=== PATIENT | male | born 1940 | race Caucasian/White ===

== ENCOUNTER 2018-03-18 09:40 | Day surgery (SDC) | payer MEDICARE, OTHER ==
[~2018-03-18] VITALS: Ht 162.6 cm; Wt 76.6 kg
[~2018-03-18 09:40] MED LIST: ASPI81EC PO; ATOR20 PO; ATOR40TA PO; Aspir-Low81 MG PO; CEPH500 PO; CHOL10002 PO; CYAN1000 PO; FISH1000 PO; Glucophage1000 MG PO; HYDROCOD PO; LISI10 PO; LISI5 PO; METF500C PO; MULVITA PO; MULVITMIND PO; Prinivil10 MG PO; TRIHYD253B PO; TYL PO; UBID100 PO
--- NOTE | 2018-03-18 10:37 | NUR ---
03/18/18 1037 Apoorva Salguero PT HYPERTENSIVE, SEE VITALS SIGNS RECORD. RECEIVED VO FROM DR ZELAYA FOR 10MG IV HYDRALAZINE FOR SYSTOLIC BP MORE THAN 175. 1031 10MG IV HYRDALAZINE GIVEN FOR 211/100 BP.
== END 2018-03-18 12:43 | disposition home or self-care (01) ==
LOC: ORSCSDS 09:40
PROVIDERS: Otolaryngology
PROC: 03BS0ZX Excision of Right Temporal Artery, Open Approach, Diagnostic (ICD-10-PCS; principal; 2018-03-18 11:00)
DX: M31.6 Other giant cell arteritis (principal); E78.5 Hyperlipidemia, unspecified; I10 Essential (primary) hypertension; E11.9 Type 2 diabetes mellitus without complications; Z87.891 Personal history of nicotine dependence; Z79.899 Other long term (current) drug therapy; Z79.82 Long term (current) use of aspirin
CPT/HCPCS: 82947; 88305; 88313; J0360; J1100; J2250; J3010; J7120

== ENCOUNTER → 2018-06-02 | Outpatient (CLI) | payer MEDICARE, OTHER ==
[2018-06-03 15:34] LABS: Adenovirus F 40/41 Not Detected (NOT DETECT); Astrovirus Not Detected (NOT DETECT); Campylobacter Sp Not Detected (NOT DETECT); Cryptosporidium Not Detected (NOT DETECT); Cyclospora Cayetanensis Not Detected (NOT DETECT); E. Coli O157 Not Detected (NOT DETECT); Entamoeba Histolytica Not Detected (NOT DETECT); Enteroaggregative E. coli-EAEC Not Detected (NOT DETECT); Enteropathogenic E. coli-EPEC Not Detected (NOT DETECT); Enterotoxigenic E. coli-ETEC Not Detected (NOT DETECT); Giardia Lamblia Not Detected (NOT DETECT); Norovirus GI/GII Not Detected (NOT DETECT); Plesiomonas Shigelloides Not Detected (NOT DETECT); Rotavirus A Not Detected (NOT DETECT); Salmonella Sp Not Detected (NOT DETECT); Sapovirus Not Detected (NOT DETECT); Shiga Toxin-prod E. coli-STEC Not Detected (NOT DETECT); Shigella/Enteroin E. coli-EIEC Not Detected (NOT DETECT); Vibrio Cholerae Not Detected (NOT DETECT); Vibrio Sp Not Detected (NOT DETECT); Yersinia Enterocolitica Not Detected (NOT DETECT)
== END | disposition home or self-care (01) ==
LOC: LAB 04:00 → LAB SHORT 04:00 → LAB FUT 06-02 12:05
DX: R19.7 Diarrhea, unspecified (principal)
CPT/HCPCS: 87507

== ENCOUNTER 2018-12-23 05:56 | Day surgery (SDC) | payer MEDICARE, OTHER ==
[~2018-12-23] VITALS: Ht 162.6 cm; Wt 78.0 kg
[~2018-12-23 05:56] MED LIST changes: +AMLO10 PO; +BASAGLAR K100 UNIT/1; +Humalog Mi100 UNIT/4; +METPRE4 PO; +OCUVITE ADULT1 EAC1 PO; +PANT40 PO; +SODBIC650 PO; +TUMS500 MG PO; +VITAMIN D31000 UNI2 PO
--- NOTE | 2018-12-23 09:41 | NUR ---
PT AND FAMILY VERBALIZES UNDERSTANDING WRITTEN AND VERBAL ORDERS. PT IV DC'D. CATH INTACT. PRESSURE DSG IN PLACE. R SIDED INCISION REMAINS CLEAR. VSS. NADN. PT WILL DC TO HOME VIA WC
[2018-12-24 06:08] LABS: HBSAG SCREEN Negative (Negative); HEP A AB, IGM Negative (Negative); HEP B CORE AB, IGM Negative (Negative); HEP C VIRUS AB <0.1 (0.0-0.9)
== END 2018-12-23 10:01 | disposition home or self-care (01) ==
LOC: MHTC 05:56
PROVIDERS: Internal Medicine Nephrology
DX: E11.22 Type 2 diabetes mellitus with diabetic chronic kidney disease (principal); N18.6 End stage renal disease; N17.9 Acute kidney failure, unspecified; Z87.891 Personal history of nicotine dependence; Z79.899 Other long term (current) drug therapy; Z79.82 Long term (current) use of aspirin; Z79.4 Long term (current) use of insulin; Z85.53 Personal history of malignant neoplasm of renal pelvis; Z90.5 Acquired absence of kidney
CPT/HCPCS: 36558; 76937; 80074; 99152; 99153; C1750; C1769; J1644; J2250; J3010; J7030; J7040

== ENCOUNTER 2019-01-25 01:01 | Inpatient (IN) | payer MEDICARE, OTHER ==
[~2019-01-25] VITALS: Ht 162.6 cm; Wt 72.4 kg
[~2019-01-25 01:01] MED LIST changes: -BASAGLAR K100 UNIT/1; +BASAGLAR K100 UNIT/1 SC
[2019-01-25 01:15] LABS: Calcium, Ionized (POC) 1.13 mmol/L (1.10-1.46); Chloride (POC) 105 mmol/L (98-108); Creatinine (POC) 3.1 mg/dL (0.8-1.3); Glucose (ISTAT POC) 305 mg/dL (70-99); Hemoglobin (POC) 11.9 g/dL (13.5-17.5); Sodium (POC) 137 mmol/L (135-148); Total CO2 (POC) 20 mmol/L (21-32)
[2019-01-25 01:16] LABS: Hematocrit 35.8 % (37.0-53.0); Hemoglobin 11.7 g/dL (13.5-17.5); Mean Corpuscular HGB 33.1 pg (26.0-34.0); Mean Corpuscular HGB Conc 32.7 g/dL (31.5-36.5); Mean Corpuscular Volume 101 fL (80-100); Mean Platelet Volume 9.6 fL (9.1-12.4); Platelet Count 181 K/mm3 (150-400); RDW Coefficient Variation 12.9 % (11.7-14.2); RDW Standard Deviation 46.9 fL (35.1-46.3); Red Blood Cell Count 3.53 M/mm3 (4.30-5.90); White Blood Cell Count 9.09 K/mm3 (4.00-11.30)
[2019-01-25 01:19] LABS: Source, Urine Clean Catch
[2019-01-25 01:22] LABS: Bilirubin, Urine Neg (Neg); Blood, Urine 1+ (Neg); Glucose Qualitative, Urine 3+ (Neg); Ketones, Urine Neg (Neg); Leukocyte Esterase, Urine Neg (Neg); Nitrite, Urine Neg (Neg); Protein, Urine 3+ (Neg); Specific Gravity, Urine 1.015 (1.003-1.022); Urobilinogen, Urine NORM (Normal)
[2019-01-25 01:23] LABS: Appearance, Urine Clear (Clear); Color, Urine Yellow (P-Yellow)
[2019-01-25 01:29] LABS: Red Blood Cells, Urine Rare /hpf (0-2); Squamous Epithelial Cells Rare /hpf (Few); White Blood Cells, Urine Not Seen /hpf (0-5)
[2019-01-25 01:30] LABS: Bacteria Not Seen /hpf
[2019-01-25 01:36] LABS: Alanine Aminotransfer (ALT/SGP 28 U/L (12-78); Albumin, Blood 3.9 g/dL (3.4-5.0); Albumin/Globulin Ratio 1.2 (0.8-1.8); Alk Phos 99 U/L (50-136); Anion Gap 11 mmol/L (6-16); Aspartate Aminotrans (AST/SGOT 18 U/L (12-37); Bilirubin, Total 0.8 mg/dL (0.1-1.0); Blood Urea Nitrogen 49 mg/dL (8-24); Bun/Creatinine Ratio 17.8 (12.0-20.0); CO2, Blood 21 mmol/L (21-32); Chloride, Blood 107 mmol/L (98-108); Creatinine, Blood 2.75 mg/dL (0.60-1.20); Globulin, Blood 3.3 g/dL (2.2-4.0); Glomerular Filtration Rate 24 (60-); Glucose, Blood 299 mg/dL (70-99); Sodium, Blood 139 mmol/L (136-145); Total Protein, Blood 7.2 g/dL (6.4-8.2); Troponin I <0.015 ng/mL (0.000-0.040)
[2019-01-25 01:39] LABS: BAND PERCENT MAN 13 % (0-8); BASOPHILS PERCENT MAN 0 % (0-2); EOSINOPHILS PERCENT MAN 0 % (0-6); LYMPHOCYTES ABSOLUTE MAN 0.54 K/mm3 (0.84-5.20); LYMPHOCYTES PERCENT MAN 6 % (21-46); MONOCYTES ABSOLUTE MAN 0.36 K/mm3 (0.16-1.47); MONOCYTES PERCENT MAN 4 % (4-13); NEUTROPHILS ABSOLUTE MAN 8.18 K/mm3 (1.96-9.15); SEG NEUTROPHILS PERCENT MAN 77 % (41-73); TOTAL CELLS COUNTED 100
--- NOTE | 2019-01-25 04:36 | NUR ---
DIALYSIS CALLED IN TO DRAW BLOOD CULTURES FROM CATH SITE. DRAWN FROM BLUE PORT (VENOUS) PER PROTOCAL. PACKED WITH HEPARIN 2.1 ML PER PROTOCAL. I WALKED THEM TO THE LAB.
--- NOTE | 2019-01-25 06:34 | NUR ---
ADMIT/ASSESSMENT PT ARRIVED TO ICU VIA GURNEY. HE WAS MOVED OVER TO ICU BED WITH NO ISSUES. VITALS ARE STABLE. ORIENTED PT TO CALL LIGHT. HE SEEMS TO UNDER STAND WHERE HE IS MOST OF THE TIME, BUT NOT SITUATION. HE IS COOPERATIVE WITH CARE. HE CALLED HIS AND LEFT MESSAGE THAT HE NEEDED HER TO BRING IN HIS HOME MEDICATION LIST. THIS RN BEGAN ASKING QUESTIONS FOR HIS HEALTH HISTORY AND HIS ANSWERS ARE NOT CONSISTANT WITH MD'S H AND P. THUS WILL WAIT FOR TO ARRIVE TO HELP WITH HEALTH HISTORY. ADMINISTERED PT'S HEPARIN SQ WELL HIS INSULIN SQ ORDERED. PT TOLERATED THIS WELL AND WAS COOPERATIVE. PT WAS GIVEN A URINAL UPON REQUEST FROM PT. PT IS ON RA WITH NO RESPIRATORY DISTRESS. PT HAS TWO PERIPHERAL IV'S TO LEFT ARM BOTH SL. DIALYSIS PORT TO RIGHT CHEST WALL SL. PT HAS A DIABETIC BLOOD SUGAR CHECK ACCESS DEVICE TO HIS RIGHT DELTOID. OVERALL PT IS PLESANT AND COOPERIVE AND STABLE. WILL CON'T TO MONITOR AND KEEP PT SAFE TILL REPORT TO ONCOMING RN.
--- NOTE | 2019-01-25 08:00 | NUR ---
ASSUMED CARE RECEIVED REPORT FROM NIGHT RN. PT IS ALERT AND ORIENTED TO PLACE, SELF, , BUT NOT SITUATION. HE IS SLOW TO RESPOND AND SLIGHTLY FORGETFUL. STABLE VITALS. BED IS LOW AND LOCKED. CALL LIGHT WITHIN REACH. HE HAS A RIGHT PERMACATH WITH A SITE WNL.
--- NOTE | 2019-01-25 09:09 | NUR ---
PT TO DIALYSIS. PT LEFT ICU, VIA WHEELCHAIR, ON TELEMETRY TO THE DIALYSIS UNIT WITH LORAINE TEAGUE) AND HIS . VITALS WERE STABLE PRIOR TO DEPARTURE; SINUS RHYTHM CONTROLLED RATE.
--- NOTE | 2019-01-25 09:13 | NUR ---
Echocardiogram completed.
--- NOTE | 2019-01-25 11:50 | NUR ---
PT BACK IN ROOM FROM DIALYSIS. AT BEDSIDE.
--- NOTE | 2019-01-25 12:38 | NUR ---
UPDATE/NEURO PT BACK FROM DIALYSIS SHIVERING, WITH STATING THAT HE HAS BEEN COMPLAINING OF BEING VERY COLD. ALTHOUGH HIS SKIN IS WARM TO TOUCH AND HIS TEMPERATURE WAS 99.8F. HE IS TACHYPNEIC, WITH A RATE OF 32, AND HAS DECREASED LOC. HE IS NOW UNABLE TO TELL ME WHERE HE IS, WHO THE PRESIDENT IS, AND CONTINUES TO NOT KNOW WHY HE IS HERE. HE IS NOT ALERT, UNLESS YOU STIMULATE HIM.
--- NOTE | 2019-01-25 14:25 | NUR ---
ANTIBIOTIC CHANGE CEFEPIME STARTED PER ORDER POST BC X 1 RETURNED + COCCI IN [place]. ANTIBIOTIC STARTED AND NOW RADIOLOGY HERE FOR MRI AND REQUESTING ANTIBIOTIC TO BE STOPPED, ASKED IF EXAM COULD WAIT 15 MINUTES BUT TECH REPORTED THE EXAM CANNOT BE COMPLETED TODAY IF IT DOES NOT HAPPEN NOW.
--- NOTE | 2019-01-25 14:31 | NUR ---
PT TO MRI AT THIS TIME.
--- NOTE | 2019-01-25 15:02 | NUR ---
CEFEPIME RESTRARTED PT RETURNED TO ICU AT 1450
[2019-01-25 16:19] LABS: Vancomycin, Random 10.4 ug/mL
--- NOTE | 2019-01-25 19:15 | NUR ---
ASSUME CARE: REPORT RECIEVED FROM [facility] OFF GOING RH, MONITOR INTACT SHOWING SINUS STACIE HEART RATE 50'S RESTS QUIETLY WHEN UNDISTURBED AWAKENS EASILY LUNG SOUND CLEAR. RESPIRATIONS REGULAR AND EASY ON ROOM AIR.SPO2 94-97% WITH O2 IN PLACE AT 2L/MIN.ABDOMEN SOFT WITH BOWEL SOUNDS FOUR QUADS. ATTENDS IN PLACEMAE WELL IN BED CONTINUE TO MONITOR AND REPORT CHANGE IN PATIENT CONDITION
--- NOTE | 2019-01-25 19:29 | NUR ---
SHIFT SUMMARY PT MORE ALERT AT END OF SHIFT, ALTHOUGH HAS TAKEN A DECENT NAP. HE HAS BEEN ORIENTED TO ONLY SELF (AFTER DIALYSIS-SEE NOTE), TO SELF, SPOUSE, SURROUNDINGS, AND SORT OF REGARDING SITUATION. HE WAS RED IN THE FACE AND CHEST, BUT HAS CLEARED UP TO HIS NORMAL SKIN COLOR. HE IS STILL FEBRILE, BUT IT HAS IMPROVED FROM EARLIER. DR. MERCER NOTIFIED ABOUT CONSULTING DR HERNANDEZ DOCTOR TO DOCTOR. AND DR. MERCER WILL NOTIFY SARATH REGARDING BLOOD CULTURE FROM [facility] BEING POSITIVE FOR GRAM POSTIVE COCCI CLUSTERS. HE HAD 4 POSITIVE BLOOD CULTURES COME BACK POSITIVE FOR GRAM POSITIVE COCCI. HE HAD DIALYSIS TODAY WHERE THEY REMOVED 300ML (HE VOIDED SMALL AMOUNTS A FEW TIMES TODAY). VITALS REMAINED STABLE THROUGHOUT SHIFT. PT REQUIRES 2L NC WHEN ASLEEP TO MAINTAIN SATS, HE APPEARS TO HAVE SOME BRIEF APNEIC PERIODS. BED LOW AND LOCKED. CALL LIGHT WITHIN REACH.
--- NOTE | 2019-01-26 00:18 | NUR ---
DR CLEMENS ON PHONE ORDERS NOTED.
--- NOTE | 2019-01-26 00:18 | NUR ---
SWERING SERVICE NOTIFIED OF CONSULT
[2019-01-26 03:25] LABS: BASOPHILS ABSOLUTE AUTO 0.01 K/mm3 (0.00-0.23); BASOPHILS PERCENT AUTO 0 % (0-2); EOSINOPHILS ABSOLUTE AUTO 0.03 K/mm3 (0.00-0.68); EOSINOPHILS PERCENT AUTO 0 % (0-6); Hematocrit 31.5 % (37.0-53.0); Hemoglobin 10.2 g/dL (13.5-17.5); IMMATURE GRAN ABSOLUTE AUTO 0.07 K/mm3 (0.00-0.10); IMMATURE GRAN PERCENT AUTO 1 % (0-1); LYMPHOCYTES ABSOLUTE AUTO 0.49 K/mm3 (0.84-5.20); LYMPHOCYTES PERCENT AUTO 6 % (21-46); MONOCYTES PERCENT AUTO 6 % (4-13); Mean Corpuscular HGB 34.1 pg (26.0-34.0); Mean Corpuscular HGB Conc 32.4 g/dL (31.5-36.5); Mean Platelet Volume 9.7 fL (9.1-12.4); NEUTROPHILS ABSOLUTE AUTO 7.46 K/mm3 (1.96-9.15); NEUTROPHILS PERCENT AUTO 87 % (41-73); Platelet Count 140 K/mm3 (150-400); RDW Standard Deviation 49.5 fL (35.1-46.3); Red Blood Cell Count 2.99 M/mm3 (4.30-5.90); White Blood Cell Count 8.56 K/mm3 (4.00-11.30)
[2019-01-26 03:28] LABS: Mean Corpuscular Volume 105 fL (80-100)
[2019-01-26 03:44] LABS: Albumin, Blood 2.9 g/dL (3.4-5.0); Albumin/Globulin Ratio 0.9 (0.8-1.8); Bilirubin, Total 0.8 mg/dL (0.1-1.0); Bun/Creatinine Ratio 14.6 (12.0-20.0); Calcium, Blood 8.4 mg/dL (8.5-10.1); Creatinine, Blood 2.67 mg/dL (0.60-1.20); Globulin, Blood 3.2 g/dL (2.2-4.0); Magnesium, Blood 1.8 mg/dL (1.6-2.4); Phosphorus, Blood 2.9 mg/dL (2.5-4.9); Potassium, Blood 3.3 mmol/L (3.5-5.5); Total Protein, Blood 6.1 g/dL (6.4-8.2)
--- NOTE | 2019-01-26 06:13 | NUR ---
SHIFAT SUMMARY DR CLEMENS NOTIFIED OF LAB RESULTS POTASSIUM 3.3 ORDERS NOTED. AWAKE DENIES DISCOMFORT MONITOR INTACT SHOWING SINUS RHYTHM/SINUS STACIE. HEART RATE 50'S-60'S LUNG SOUNDS CLEAR UPPER LOBES WITH DECDREASED SOUNDS IN THE BASES. RESPIRATIONS REGULAR AND EASY AT REST WITH O2 IN PLACE AT 2L/MIN. SPO2 95-98% ABDOMEN SOFT WITH BOWEL SOUNDS FOUR QUADS. UP TO BSC WITH ONE ASSIST. VOIDS JUANITA URINE. PERFORMING AM CARES. CONTINUE TO MONITOR AND REPORT CHANGE IN PATIENT CONDITION.
--- NOTE | 2019-01-26 08:00 | NUR ---
INITIAL ASSESSMENT PATIENT RESTING IN BED QUIETLY UPON ENTERING ROOM. PATIENT ALERT AND ORIENTED X 4. PATIENT HAS TEMP OF 100.2 DEGREES FAHRENHEIT. PATIENT DENIES PAIN OR DISCOMFORT. PATIENT SLIGHTLY WEAK, 1 PERSON ASSIST. FULL ROM TO ALL EXTREMITIES. LUNGS CLEAR IN UPPER LOBES, DIMINISHED IN LOWER LOBES. PATIENT SATTING 90% AND GREATER ON RA. PATIENT DENIES COUGH. PATIENT IN SR WITH FIRST DEGREE AV BLOCK. HR 70S TO 80S. BP STABLE. PULSES STRONG. NO EDEMA NOTED. GI WNL. BRUISES NOTED TO BUES, SKIN FRAGILE, OTHERWISE SKIN CLEAN, DRY, INTACT. AT BEDSIDE. BED LOW, CALL LIGHT IN REACH. WILL CONTINUE TO MONITOR PATIENT FREQUENTLY THROUGHOUT SHIFT.
--- NOTE | 2019-01-26 08:26 | NUR ---
CALLED AND SPOKE TO DR. CARVAJAL. INFORMED OF CONSULT AND UPDATED ON PATIENT. INFORMED THAT PATIENT SUPPOSED TO HAVE DIALYSIS AT 0900. STATED THAT HE WILL KEEP PATIENT NPO UNTIL HE SEES HIM, TO SEND PATIENT TO DIALYSIS. NURSE ASKED IF SHOULD HOLD 0900 HEPARIN DOSE; DR. CARVAJAL STATED TO GO AHEAD AND GIVE AM HEPARIN.
--- NOTE | 2019-01-26 08:45 | NUR ---
PATIENT TAKEN TO CT AND THEN TO DIALYSIS FROM CT.
[2019-01-26] MEDS ORDERED: OCUVITE ADULT1 EAC1 PO ×2 (10:20)
--- NOTE | 2019-01-26 11:30 | NUR ---
PATIENT BACK FROM DIALYSIS.
[2019-01-26 11:45] LABS: Vancomycin, Random 7.8 ug/mL
--- NOTE | 2019-01-26 12:13 | NUR ---
DR. CARVAJAL IN ROOM TO SPEAK WITH PATIENT AND .
--- NOTE | 2019-01-26 13:03 | NUR ---
PATIENT RESTING QUIETLY IN BED WITH NO COMPLAINTS AT THIS TIME. PATIENT HAS TEMP OF 102.6 DEGREES FAHRENHEIT. PATIENT GIVEN TYLENOL AND FAN PLACED ON. VITAL SIGNS STABLE OTHERWISE. NO OTHER ACUTE CHANGES TO NOTE ON AT THIS TIME. WILL CONTINUE TO MONITOR.
--- NOTE | 2019-01-26 13:47 | NUR ---
Pt. doing well offered prayers
--- NOTE | 2019-01-26 13:50 | NUR ---
SHIFT SUMMARY PATIENT REMAINED ALERT AND ORIENTED X 4. PATIENT HAD NO COMPLAINTS OF PAIN. PATIENT HAD TMAX OF 102.6 DEGREES FAHRENHEIT AND WAS GIVEN PRN TYLENOL AND FAN PLACED ON. PATIENT REMAINED SATTING 90% AND GREATER ON RA. PATIENT REMAINED IN SR WITH FIRST DEGREE AV BLOCK. HR AND BP REMAINED STABLE. PATIENT DID NOT HAVE BM THIS SHIFT. PATIENT HAS REMAINED NPO UNTIL PERMACATH REMOVED PER DR. CARVAJAL. PATIENT VOIDING DARK YELLOW, FOUL SMELLING URINE INTO BEDSIDE URINAL WITH 1 PERSON ASSIST WITH STANDING. NO CHANGE IN SKIN. PATIENT HAS BEEN REPOSITIONING SELF. NO COMPLAINTS AT THIS TIME. PATIENT IS BEING TAKEN TO REPAIR ARMATURE WINDER FOR PERMACATH REMOVAL AND THEN WILL BE TAKEN DIRECTLY TO PCU 05. UPDATED ON PATIENT CONDITION AND TRANSFER AFTER REPAIR ARMATURE WINDER.
--- NOTE | 2019-01-26 14:00 | NUR ---
[facility], ROHIT ODEN.
--- NOTE | 2019-01-26 15:15 | NUR ---
PT TRANSFERED FROM ICU TO PCU 5. PT ARRIVED ON BED AFTER GOING TO HEART CENTER FOR PERMA CATH REMOVAL. DRESSING TO RIGHT CHEST IS C/D/I. PT IS LETHARGIC, BUT AWAKES EASILY. PT DECLINES ANY PAIN OR DISCOMFORT CURRENTLY.
--- NOTE | 2019-01-26 18:24 | NUR ---
SHIFT SUMMARY PT IS NOW FULLY AWAKE AFTER PERMACATH REMOVAL THIS AFTERNOON. DRESSING TO RIGHT CHEST IS C/D/I. PT ARRIVED TO UNIT AFEBRILE HAS BEEN SINCE. VITALS HAVE REMAINED STABLE POST PROCEDURE.
--- NOTE | 2019-01-26 20:00 | NUR ---
PROVIDER SHIRLEY JOHNSTON BUMPER OPERATOR CALLED REGARDING PT HAVING ACHS BLOOD SUGARS BUT ONLYU AC COVERAGE, CBG SHOWS 221. PROVIDER STATES TO CHANGE ORDER TO AC CHECKS, NO ORDEERS FOR COVERAGE NOW.
[2019-01-27 04:17] LABS: BASOPHILS ABSOLUTE AUTO 0.01 K/mm3 (0.00-0.23); BASOPHILS PERCENT AUTO 0 % (0-2); EOSINOPHILS ABSOLUTE AUTO 0.07 K/mm3 (0.00-0.68); EOSINOPHILS PERCENT AUTO 1 % (0-6); Hematocrit 31.7 % (37.0-53.0); Hemoglobin 10.2 g/dL (13.5-17.5); IMMATURE GRAN ABSOLUTE AUTO 0.04 K/mm3 (0.00-0.10); IMMATURE GRAN PERCENT AUTO 1 % (0-1); LYMPHOCYTES PERCENT AUTO 16 % (21-46); MONOCYTES PERCENT AUTO 10 % (4-13); Mean Corpuscular HGB 33.4 pg (26.0-34.0); Mean Corpuscular HGB Conc 32.2 g/dL (31.5-36.5); Mean Corpuscular Volume 104 fL (80-100); Mean Platelet Volume 9.5 fL (9.1-12.4); NEUTROPHILS ABSOLUTE AUTO 4.93 K/mm3 (1.96-9.15); NEUTROPHILS PERCENT AUTO 72 % (41-73); Platelet Count 147 K/mm3 (150-400); RDW Coefficient Variation 12.7 % (11.7-14.2); Red Blood Cell Count 3.05 M/mm3 (4.30-5.90); White Blood Cell Count 6.85 K/mm3 (4.00-11.30)
[2019-01-27 04:39] LABS: Albumin/Globulin Ratio 0.9 (0.8-1.8); Bilirubin, Total 0.9 mg/dL (0.1-1.0); Bun/Creatinine Ratio 10.7 (12.0-20.0); Calcium, Blood 8.7 mg/dL (8.5-10.1); Creatinine, Blood 2.62 mg/dL (0.60-1.20); Globulin, Blood 3.5 g/dL (2.2-4.0); Magnesium, Blood 1.9 mg/dL (1.6-2.4); Phosphorus, Blood 2.6 mg/dL (2.5-4.9); Potassium, Blood 3.9 mmol/L (3.5-5.5); Total Protein, Blood 6.5 g/dL (6.4-8.2)
--- NOTE | 2019-01-27 05:36 | NUR ---
END OF SHIFT SUMMARY NO ACUTE CHANGES THIS SHIFT. PT AXO, FULLY AWARE OF SURROUNDINGS TO ASSESMENT. PT NOTED TO BE IN WAP VERSUS SR DUE AURA INTERMITTENT INVERSE P WAVES. LUNG SOUNDS DIM BUT CLEAR. PERMA CATH REMOVAL SITE APEARS WITH NO NEW BLEEDING, SOME BRUISING, SLIGHT TENDER TO PALPATION. VSS. PT HAS EXPRESSED NEEDS APPROPRIATELY TO NURSE. USES CALL LIGHT. WILL CONTINUE TO MONITOR UNTIL SHIFT CHANGE.
--- NOTE | 2019-01-27 12:00 | NUR ---
PT TRANSFERRED TO ROOM 341 VIA W/C FROM PCU. SPOKE WITH DR. MERCER ABOUT CONSULT FOR DR. HERNANDEZ. EXPLAINED ONLY OPTION FOR US IS TO LEAVE MESSAGE ON CONSULT LINE BUT WILL KEEP AN EYE OUT FOR MD WHEN HE COMES IN FOR CONSULTS. PT INDEPENDENT IN ROOM WITH AT THE BEDSIDE.
--- NOTE | 2019-01-27 13:13 | NUR ---
Pt. is sitting in a chair and talking with the spouse in the room on a visit ,pt is doing fine offered prayers.
--- NOTE | 2019-01-27 13:15 | NUR ---
Pt. is in bed resting offered prayers and blessing.
[2019-01-27 13:35] LABS: Vancomycin, Random 15.9 ug/mL
--- NOTE | 2019-01-27 18:44 | NUR ---
SHIFT SUMMARY PT HAS BEEN UP IN ROOM INDEPENDENTLY SINCE ARRIVAL WITH AT BEDSIDE. DR. HERNANDEZ IN TO VISIT THIS AFTERNOON AND SPOKE WITH DR. MERCER PRIOR TO VISIT. PT HAS DENIED ANY PAIN AND HAS HAD NO FEVER. AT BEDSIDE SINCE ARRIVAL TO FLOOR.
[2019-01-28 05:01] LABS: BASOPHILS ABSOLUTE AUTO 0.01 K/mm3 (0.00-0.23); BASOPHILS PERCENT AUTO 0 % (0-2); EOSINOPHILS ABSOLUTE AUTO 0.13 K/mm3 (0.00-0.68); EOSINOPHILS PERCENT AUTO 3 % (0-6); Hematocrit 30.8 % (37.0-53.0); IMMATURE GRAN ABSOLUTE AUTO 0.03 K/mm3 (0.00-0.10); IMMATURE GRAN PERCENT AUTO 1 % (0-1); LYMPHOCYTES ABSOLUTE AUTO 1.32 K/mm3 (0.84-5.20); LYMPHOCYTES PERCENT AUTO 26 % (21-46); MONOCYTES ABSOLUTE AUTO 0.76 K/mm3 (0.16-1.47); MONOCYTES PERCENT AUTO 15 % (4-13); Mean Corpuscular HGB 32.8 pg (26.0-34.0); Mean Corpuscular HGB Conc 32.5 g/dL (31.5-36.5); Mean Platelet Volume 9.6 fL (9.1-12.4); NEUTROPHILS ABSOLUTE AUTO 2.89 K/mm3 (1.96-9.15); NEUTROPHILS PERCENT AUTO 56 % (41-73); Platelet Count 169 K/mm3 (150-400); RDW Coefficient Variation 12.6 % (11.7-14.2); RDW Standard Deviation 46.2 fL (35.1-46.3); Red Blood Cell Count 3.05 M/mm3 (4.30-5.90); White Blood Cell Count 5.14 K/mm3 (4.00-11.30)
[2019-01-28 05:04] LABS: Mean Corpuscular Volume 101 fL (80-100)
--- NOTE | 2019-01-28 05:08 | NUR ---
SHIFT SUMMARY NO ACUTE CHANGES THIS SHIFT. PT REPORTS THAT HE FEELS BACK TO HIS BASELINE. OLD HD CATHETER SITE LOOKS CLEAR OF INFECTION. 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 AFEBRILE THIS EVENING. HEADACHE AT START OF SHIFT. MEDICATED W/ TYLENOL 650 MG. PT RESTING IN BED AT THIS TIME. WILL CONTINUE TO MONITOR.
[2019-01-28 05:17] LABS: Anion Gap 5 mmol/L (6-16); Blood Urea Nitrogen 38 mg/dL (8-24); Bun/Creatinine Ratio 13.8 (12.0-20.0); CO2, Blood 28 mmol/L (21-32); Calcium, Blood 8.8 mg/dL (8.5-10.1); Chloride, Blood 104 mmol/L (98-108); Creatinine, Blood 2.76 mg/dL (0.60-1.20); Glomerular Filtration Rate 24 (60-); Glucose, Blood 168 mg/dL (70-99); Magnesium, Blood 2.1 mg/dL (1.6-2.4); Phosphorus, Blood 2.8 mg/dL (2.5-4.9); Sodium, Blood 137 mmol/L (136-145)
--- NOTE | 2019-01-28 15:05 | NUR ---
SHIFT SUMMARY THE PATIENT HAS HAD AN UNEVENTFUL DAY. ASIDE FROM A HEADACHE THIS MORNING, WHICH RESOLVED FROM TYLENOL, THE PATIENT DENIES PAIN AND DISCOMFORT. THE PATIENT CONTINUES ON IV ABX WITHOUT S/SX OF ADVERSE REACTIONS NOTED OR REPORTED. THE PATIENT IS INDEPENDANT WITH HIS ADL's AND AMBULATES THE UNIT FREQUENTLY. THERE ARE NO ACUTE CHANGES TO REPORT OF AT THIS TIME.
--- NOTE | 2019-01-29 03:26 | NUR ---
SUMMARY NO ACUTE CHANGES NOTED THROUGH THE NIGHT. PT REMAINS A&O X4, & INDEPENDENT IN THE ROOM. DRSG TO RIGHT CHEST WALL IS C/D/I. PT IS TOLERATING PO INTAKE. VSS, NO C/O PAIN. PT CALLS FOR ASSISTANCE PRN. CALL LIGHT IN REACH. WCTM
[2019-01-29 04:27] LABS: BASOPHILS ABSOLUTE AUTO 0.01 K/mm3 (0.00-0.23); BASOPHILS PERCENT AUTO 0 % (0-2); EOSINOPHILS PERCENT AUTO 2 % (0-6); Hematocrit 29.7 % (37.0-53.0); Hemoglobin 9.8 g/dL (13.5-17.5); IMMATURE GRAN ABSOLUTE AUTO 0.06 K/mm3 (0.00-0.10); IMMATURE GRAN PERCENT AUTO 1 % (0-1); LYMPHOCYTES ABSOLUTE AUTO 1.43 K/mm3 (0.84-5.20); LYMPHOCYTES PERCENT AUTO 27 % (21-46); MONOCYTES ABSOLUTE AUTO 0.73 K/mm3 (0.16-1.47); MONOCYTES PERCENT AUTO 14 % (4-13); Mean Corpuscular HGB 33.4 pg (26.0-34.0); Mean Corpuscular Volume 101 fL (80-100); Mean Platelet Volume 9.6 fL (9.1-12.4); NEUTROPHILS ABSOLUTE AUTO 2.95 K/mm3 (1.96-9.15); NEUTROPHILS PERCENT AUTO 56 % (41-73); Platelet Count 220 K/mm3 (150-400); RDW Coefficient Variation 12.6 % (11.7-14.2); RDW Standard Deviation 47.3 fL (35.1-46.3); Red Blood Cell Count 2.93 M/mm3 (4.30-5.90); White Blood Cell Count 5.28 K/mm3 (4.00-11.30)
[2019-01-29 04:44] LABS: Albumin, Blood 2.9 g/dL (3.4-5.0); Anion Gap 8 mmol/L (6-16); Blood Urea Nitrogen 42 mg/dL (8-24); Bun/Creatinine Ratio 15.6 (12.0-20.0); CO2, Blood 23 mmol/L (21-32); Calcium, Blood 8.8 mg/dL (8.5-10.1); Chloride, Blood 106 mmol/L (98-108); Creatinine, Blood 2.69 mg/dL (0.60-1.20); Glomerular Filtration Rate 25 (60-); Glucose, Blood 221 mg/dL (70-99); Phosphorus, Blood 2.7 mg/dL (2.5-4.9); Potassium, Blood 4.3 mmol/L (3.5-5.5); Sodium, Blood 137 mmol/L (136-145)
--- NOTE | 2019-01-29 15:06 | NUR ---
SHIFT SUMMARY THE PATIENT HAS HAD ANOTHER UNEVENTFUL DAY. HE JUST RETURNED FROM AN HOUR LONG WALK AROUND THE HOSPITAL PREMESIS AND IS DOING WELL. PATIENT IS INDEPENDANT AND ABLE TO MAKE HIS NEEDS KNOWN. HE CONTINUES ON IV ABX WITH NO S/SX OF ADVERSE REACTIONS NOTED. DENIES PAIN AND DISCOMFORT. NO ACUTE CHANGES TO REPORT ON AT THIS TIME. WILL CONTINUE TO MONITOR AND PROVIDE CARE NEEDED.
[2019-01-30 05:27] LABS: BASOPHILS ABSOLUTE AUTO 0.05 K/mm3 (0.00-0.23); BASOPHILS PERCENT AUTO 1 % (0-2); EOSINOPHILS ABSOLUTE AUTO 0.14 K/mm3 (0.00-0.68); EOSINOPHILS PERCENT AUTO 2 % (0-6); Hematocrit 32.2 % (37.0-53.0); Hemoglobin 9.9 g/dL (13.5-17.5); IMMATURE GRAN ABSOLUTE AUTO 0.28 K/mm3 (0.00-0.10); IMMATURE GRAN PERCENT AUTO 4 % (0-1); LYMPHOCYTES ABSOLUTE AUTO 1.97 K/mm3 (0.84-5.20); LYMPHOCYTES PERCENT AUTO 29 % (21-46); MONOCYTES PERCENT AUTO 13 % (4-13); Mean Corpuscular HGB 32.7 pg (26.0-34.0); Mean Corpuscular HGB Conc 30.7 g/dL (31.5-36.5); Mean Platelet Volume 9.8 fL (9.1-12.4); NEUTROPHILS ABSOLUTE AUTO 3.36 K/mm3 (1.96-9.15); NEUTROPHILS PERCENT AUTO 50 % (41-73); Platelet Count 268 K/mm3 (150-400); RDW Coefficient Variation 12.9 % (11.7-14.2); Red Blood Cell Count 3.03 M/mm3 (4.30-5.90)
[2019-01-30 05:33] LABS: Mean Corpuscular Volume 106 fL (80-100)
[2019-01-30 05:43] LABS: Anion Gap 8 mmol/L (6-16); Blood Urea Nitrogen 42 mg/dL (8-24); Bun/Creatinine Ratio 15.8 (12.0-20.0); CO2, Blood 21 mmol/L (21-32); Calcium, Blood 9.2 mg/dL (8.5-10.1); Chloride, Blood 107 mmol/L (98-108); Creatinine, Blood 2.65 mg/dL (0.60-1.20); Glomerular Filtration Rate 25 (60-); Glucose, Blood 234 mg/dL (70-99); Phosphorus, Blood 2.8 mg/dL (2.5-4.9); Potassium, Blood 4.4 mmol/L (3.5-5.5); Sodium, Blood 136 mmol/L (136-145)
--- NOTE | 2019-01-30 08:05 | NUR ---
SUMMARY PT ALERT AND APPROPRIATE THIS SHIFT. NO C/O.RESTED QUIETLY TONIGHT.
--- NOTE | 2019-01-30 17:53 | NUR ---
SHIFT SUMMARY YESTERDAY BLOOD CULTURES CAME BACK NEGATIVE. TODAYS CULTURES TAKEN & PENDING. NO CHANGES IN ASSESSMENT AT THIS TIME. VSS. PT IND IN ROOM. MEDICATED FOR HEADACHE ONCE THIS SHIFT. NO OTHER COMPLAINTS OF PAIN AT THIS TIME. WILL CONTINUE TO MONITOR UNTIL TURNOVER IS COMPLETE.
[2019-01-31 05:27] LABS: Hematocrit 31.1 % (37.0-53.0); Mean Corpuscular HGB 33.2 pg (26.0-34.0); Mean Corpuscular HGB Conc 32.2 g/dL (31.5-36.5); Mean Platelet Volume 9.6 fL (9.1-12.4); Platelet Count 328 K/mm3 (150-400); RDW Standard Deviation 48.5 fL (35.1-46.3); Red Blood Cell Count 3.01 M/mm3 (4.30-5.90); White Blood Cell Count 6.29 K/mm3 (4.00-11.30)
[2019-01-31 05:29] LABS: Mean Corpuscular Volume 103 fL (80-100)
[2019-01-31 05:52] LABS: Anion Gap 10 mmol/L (6-16); Blood Urea Nitrogen 43 mg/dL (8-24); Bun/Creatinine Ratio 17.6 (12.0-20.0); CO2, Blood 20 mmol/L (21-32); Chloride, Blood 108 mmol/L (98-108); Creatinine, Blood 2.44 mg/dL (0.60-1.20); Glomerular Filtration Rate 27 (60-); Glucose, Blood 286 mg/dL (70-99); Phosphorus, Blood 3.1 mg/dL (2.5-4.9); Potassium, Blood 4.4 mmol/L (3.5-5.5); Sodium, Blood 138 mmol/L (136-145)
[2019-01-31 05:53] LABS: BAND PERCENT MAN 3 % (0-8); BASOPHILS ABSOLUTE MAN 0.06 K/mm3 (0.00-0.23); BASOPHILS PERCENT MAN 1 % (0-2); EOSINOPHILS ABSOLUTE MAN 0.18 K/mm3 (0.00-0.68); EOSINOPHILS PERCENT MAN 3 % (0-6); LYMPHOCYTES % ATYPICAL MANUAL 1 % (0-0); LYMPHOCYTES ABSOLUTE MAN 2.01 K/mm3 (0.84-5.20); LYMPHOCYTES PERCENT MAN 31 % (21-46); METAMYELOCYTE ABSOLUTE MAN 0.18 K/mm3 (0.00-0.00); METAMYELOCYTE PERCENT MAN 3 % (0-0); MONOCYTES ABSOLUTE MAN 0.75 K/mm3 (0.16-1.47); MONOCYTES PERCENT MAN 12 % (4-13); MYELOCYTE ABSOLUTE MAN 0.12 K/mm3 (0.00-0.00); MYELOCYTE PERCENT MAN 2 % (0-0); NEUTROPHILS ABSOLUTE MAN 2.95 K/mm3 (1.96-9.15); SEG NEUTROPHILS PERCENT MAN 44 % (41-73); TOTAL CELLS COUNTED 100
--- NOTE | 2019-01-31 07:36 | NUR ---
SHIFT SUMMARY PT A/O NO C/O PAIN. INDEPENDENT IN ROOM. WALKS AROUND HALLS AND OUTSIDE BUT DENIED SMOKING. HE WAS ABLE TO SLEEP THROUGH THE NIGHT. CALL LIGHT IN REACH.
[2019-01-31] MEDS ORDERED: TYLENOL325 MG PO ×2 (12:00)
[2019-01-31] MEDS ORDERED: Florastor250 MG PO ×2 (12:00)
[2019-01-31] MEDS ORDERED: CEPH500 PO ×2 (12:00)
[2019-01-31] MEDS ORDERED: Rocephin 1g1 G/50 ML IV ×2 (14:12)
--- NOTE | 2019-01-31 18:14 | NUR ---
DISCHARGE PT DISCHARGED TO HOME. THIS RN EXPLAINED DISCHARGE INSTRUCTIONS AND MEDICATIONS TO PT AND HE REPORTS HE UNDERSTANDS. PT RECEIVED FIRST DOSE OF IV ROCEPHIN THIS AFTERNOON IN THE HOSPITAL AND WILL BEGIN OUTPT THERAPY IN [facility] TOMORROW. PT IS AWARE OF TIME. POWERGLIDE IN PLACE, ALCOHOL CAP IN PLACE, AND NETTING COVERING SITE TO PROTECT IT. PT TRANSFERRED TO PRIVATE VEHICLE VIA WHEELCHAIR. PT'S BELONGINGS WITH PT.
== END 2019-01-31 17:11 | disposition home or self-care (01) | DRG 314 ==
LOC: ER 01:01 → EDBEDREQSVC 05:06 → ERHOLD 05:09 → ICUE 05:09 → PCU 01-26 14:52 → MEDS 01-27 11:38 → ENPENDDIS 01-31 11:01 → MEDS 01-31 17:11
PROVIDERS: Emergency Medicine; Internal Medicine; Internal Medicine Nephrology; Pharmacist; ADMIT Family Medicine
DX: T82.7XXA Infection and inflammatory reaction due to other cardiac and vascular devices, implants and grafts, initial encounter (principal); N18.6 End stage renal disease; A41.01 Sepsis due to Methicillin susceptible Staphylococcus aureus; N25.81 Secondary hyperparathyroidism of renal origin; E87.2 Acidosis; L03.115 Cellulitis of right lower limb; I12.0 Hypertensive chronic kidney disease with stage 5 chronic kidney disease or end stage renal disease; Z79.4 Long term (current) use of insulin; E87.5 Hyperkalemia; Z96.642 Presence of left artificial hip joint; E11.65 Type 2 diabetes mellitus with hyperglycemia; D63.1 Anemia in chronic kidney disease; Z99.2 Dependence on renal dialysis; E83.51 Hypocalcemia; Z90.5 Acquired absence of kidney; E11.22 Type 2 diabetes mellitus with diabetic chronic kidney disease; Z86.73 Personal history of transient ischemic attack (TIA), and cerebral infarction without residual deficits
CPT/HCPCS: 36415; 36589; 70450; 70551; 71045; 71046; 80047; 80053; 80069; 80202; 81001; 82947; 83605; 83735; 84100; 84484; 84550; 85014; 85025; 87040; 87070; 87077; 87147; 87186; 93005; 93010; 93308; 93321; 93880; 96365; 97110; 97116; 97162; 97165; 97530; 99152; 99285-25; A9270; A9270-GY; J0690; J0692; J0696; J0881; J1644; J1815; J2250; J3010; J3370; J7040; J7050

== ENCOUNTER 2019-02-01 00:08 | Day surgery (SDC) | payer MEDICARE, OTHER ==
[~2019-02-01 00:08] MED LIST changes: +Florastor250 MG PO; +Rocephin 1g1 G/50 ML IV; +TYLENOL325 MG PO
== END 2019-02-01 09:35 | disposition home or self-care (01) ==
LOC: ATC 00:08
DX: R78.81 Bacteremia (principal); B95.61 Methicillin susceptible Staphylococcus aureus infection as the cause of diseases classified elsewhere; Z79.82 Long term (current) use of aspirin; Z79.4 Long term (current) use of insulin; Z79.899 Other long term (current) drug therapy; Z91.048 Other nonmedicinal substance allergy status
CPT/HCPCS: 96365; J0696

== ENCOUNTER 2019-02-02 00:19 | Day surgery (SDC) | payer MEDICARE, OTHER | END 2019-02-02 10:25 | disposition home or self-care (01) | LOC: ATC 00:19 | DX: R78.81 Bacteremia (principal); B95.61 Methicillin susceptible Staphylococcus aureus infection as the cause of diseases classified elsewhere; Z79.82 Long term (current) use of aspirin; Z79.4 Long term (current) use of insulin; Z79.899 Other long term (current) drug therapy; Z91.048 Other nonmedicinal substance allergy status | CPT/HCPCS: 96365; J0696 ==

== ENCOUNTER 2019-02-03 00:40 | Day surgery (SDC) | payer MEDICARE, OTHER | END 2019-02-03 09:34 | disposition home or self-care (01) | LOC: ATC 00:40 | DX: R78.81 Bacteremia (principal); B95.61 Methicillin susceptible Staphylococcus aureus infection as the cause of diseases classified elsewhere; Z79.1 Long term (current) use of non-steroidal anti-inflammatories (NSAID); Z79.4 Long term (current) use of insulin; Z79.82 Long term (current) use of aspirin; Z79.899 Other long term (current) drug therapy | CPT/HCPCS: 96365; J0696 ==

== ENCOUNTER 2019-02-04 00:22 | Day surgery (SDC) | payer MEDICARE, OTHER | END 2019-02-04 09:30 | disposition home or self-care (01) | LOC: ATC 00:22 | DX: R78.81 Bacteremia (principal); B95.61 Methicillin susceptible Staphylococcus aureus infection as the cause of diseases classified elsewhere; Z79.82 Long term (current) use of aspirin; Z79.4 Long term (current) use of insulin; Z79.899 Other long term (current) drug therapy | CPT/HCPCS: 96365; J0696 ==

== ENCOUNTER 2019-02-07 00:25 | Day surgery (SDC) | payer MEDICARE, OTHER | END 2019-02-07 16:01 | disposition home or self-care (01) | LOC: ATC 00:25 | DX: A49.01 Methicillin susceptible Staphylococcus aureus infection, unspecified site (principal) | CPT/HCPCS: 96365; J0696 ==

== ENCOUNTER 2019-02-09 00:08 | Day surgery (SDC) | payer MEDICARE, OTHER | END 2019-02-09 09:25 | disposition home or self-care (01) | LOC: ATC 00:08 | DX: R78.81 Bacteremia (principal); B95.61 Methicillin susceptible Staphylococcus aureus infection as the cause of diseases classified elsewhere; Z79.82 Long term (current) use of aspirin; Z79.899 Other long term (current) drug therapy; Z79.4 Long term (current) use of insulin; Z91.048 Other nonmedicinal substance allergy status | CPT/HCPCS: J0696 ==

== ENCOUNTER 2019-02-14 07:29 | Day surgery (SDC) | payer MEDICARE, OTHER | END 2019-02-14 09:38 | disposition home or self-care (01) | LOC: ATC 07:29 | DX: R78.81 Bacteremia (principal); B95.61 Methicillin susceptible Staphylococcus aureus infection as the cause of diseases classified elsewhere; L03.115 Cellulitis of right lower limb; I10 Essential (primary) hypertension; E78.5 Hyperlipidemia, unspecified; E11.9 Type 2 diabetes mellitus without complications; Z96.642 Presence of left artificial hip joint; Z87.891 Personal history of nicotine dependence; Z79.82 Long term (current) use of aspirin; Z79.899 Other long term (current) drug therapy | CPT/HCPCS: 96365; J0696 ==

== ENCOUNTER 2019-02-15 00:01 | Day surgery (SDC) | payer MEDICARE, OTHER | END 2019-02-15 09:22 | disposition home or self-care (01) | LOC: ATC 00:01 | DX: R78.81 Bacteremia (principal); B95.61 Methicillin susceptible Staphylococcus aureus infection as the cause of diseases classified elsewhere; I10 Essential (primary) hypertension; E78.5 Hyperlipidemia, unspecified; E11.9 Type 2 diabetes mellitus without complications; L03.115 Cellulitis of right lower limb; D63.8 Anemia in other chronic diseases classified elsewhere; Z91.048 Other nonmedicinal substance allergy status; Z87.891 Personal history of nicotine dependence; Z79.82 Long term (current) use of aspirin; Z79.4 Long term (current) use of insulin; Z79.1 Long term (current) use of non-steroidal anti-inflammatories (NSAID); Z79.899 Other long term (current) drug therapy | CPT/HCPCS: 96365; J0696 ==

== ENCOUNTER 2019-02-16 00:01 | Day surgery (SDC) | payer MEDICARE, OTHER | END 2019-02-16 09:32 | disposition home or self-care (01) | LOC: ATC 00:01 | DX: R78.81 Bacteremia (principal); B95.61 Methicillin susceptible Staphylococcus aureus infection as the cause of diseases classified elsewhere; L03.115 Cellulitis of right lower limb; I10 Essential (primary) hypertension; E78.5 Hyperlipidemia, unspecified; E11.9 Type 2 diabetes mellitus without complications; D63.8 Anemia in other chronic diseases classified elsewhere; Z79.4 Long term (current) use of insulin; Z79.82 Long term (current) use of aspirin; Z79.899 Other long term (current) drug therapy; Z87.891 Personal history of nicotine dependence; Z91.048 Other nonmedicinal substance allergy status | CPT/HCPCS: 96365; J0696 ==

== ENCOUNTER 2019-02-17 00:32 | Day surgery (SDC) | payer MEDICARE, OTHER | END 2019-02-17 23:11 | disposition home or self-care (01) | LOC: ATC 00:32 | DX: R78.81 Bacteremia (principal); B95.61 Methicillin susceptible Staphylococcus aureus infection as the cause of diseases classified elsewhere; E11.628 Type 2 diabetes mellitus with other skin complications; L03.115 Cellulitis of right lower limb; I10 Essential (primary) hypertension; E78.5 Hyperlipidemia, unspecified; D63.8 Anemia in other chronic diseases classified elsewhere; Z86.73 Personal history of transient ischemic attack (TIA), and cerebral infarction without residual deficits; Z79.82 Long term (current) use of aspirin; Z79.4 Long term (current) use of insulin; Z79.899 Other long term (current) drug therapy | CPT/HCPCS: 96365; J0696 ==

== ENCOUNTER 2019-02-18 01:19 | Day surgery (SDC) | payer MEDICARE, OTHER | END 2019-02-18 09:24 | disposition home or self-care (01) | LOC: ATC 01:19 | DX: R78.81 Bacteremia (principal); B95.61 Methicillin susceptible Staphylococcus aureus infection as the cause of diseases classified elsewhere; E11.628 Type 2 diabetes mellitus with other skin complications; L03.115 Cellulitis of right lower limb; I10 Essential (primary) hypertension; E78.5 Hyperlipidemia, unspecified; D63.8 Anemia in other chronic diseases classified elsewhere; Z86.73 Personal history of transient ischemic attack (TIA), and cerebral infarction without residual deficits; Z79.82 Long term (current) use of aspirin; Z79.4 Long term (current) use of insulin; Z79.899 Other long term (current) drug therapy | CPT/HCPCS: 96365; J0696 ==

== ENCOUNTER 2019-02-19 08:39 | Day surgery (SDC) | payer MEDICARE, OTHER | END 2019-02-19 09:16 | disposition home or self-care (01) | LOC: ATC 08:39 | DX: R78.81 Bacteremia (principal); B95.61 Methicillin susceptible Staphylococcus aureus infection as the cause of diseases classified elsewhere; E11.628 Type 2 diabetes mellitus with other skin complications; L03.115 Cellulitis of right lower limb; I10 Essential (primary) hypertension; E78.5 Hyperlipidemia, unspecified; D63.8 Anemia in other chronic diseases classified elsewhere; Z86.73 Personal history of transient ischemic attack (TIA), and cerebral infarction without residual deficits; Z79.82 Long term (current) use of aspirin; Z79.4 Long term (current) use of insulin; Z79.899 Other long term (current) drug therapy | CPT/HCPCS: 96365; J0696 ==

== ENCOUNTER 2019-02-20 08:41 | Day surgery (SDC) | payer MEDICARE, OTHER | END 2019-02-20 09:13 | disposition home or self-care (01) | LOC: ATC 08:41 | DX: R78.81 Bacteremia (principal); B95.61 Methicillin susceptible Staphylococcus aureus infection as the cause of diseases classified elsewhere; E11.628 Type 2 diabetes mellitus with other skin complications; L03.115 Cellulitis of right lower limb; I10 Essential (primary) hypertension; E78.5 Hyperlipidemia, unspecified; D63.8 Anemia in other chronic diseases classified elsewhere; Z79.2 Long term (current) use of antibiotics; Z79.82 Long term (current) use of aspirin; Z79.4 Long term (current) use of insulin; Z79.899 Other long term (current) drug therapy; Z96.642 Presence of left artificial hip joint; Z87.891 Personal history of nicotine dependence; Z86.73 Personal history of transient ischemic attack (TIA), and cerebral infarction without residual deficits; Z91.048 Other nonmedicinal substance allergy status | CPT/HCPCS: 96365; J0696 ==

== ENCOUNTER 2019-02-21 09:25 | Day surgery (SDC) | payer MEDICARE, OTHER | END 2019-02-21 09:50 | disposition home or self-care (01) | LOC: ATC 09:25 | DX: R78.81 Bacteremia (principal); B95.61 Methicillin susceptible Staphylococcus aureus infection as the cause of diseases classified elsewhere; E11.628 Type 2 diabetes mellitus with other skin complications; L03.115 Cellulitis of right lower limb; I10 Essential (primary) hypertension; E78.5 Hyperlipidemia, unspecified; D63.8 Anemia in other chronic diseases classified elsewhere; Z79.2 Long term (current) use of antibiotics; Z79.82 Long term (current) use of aspirin; Z79.4 Long term (current) use of insulin; Z79.899 Other long term (current) drug therapy; Z96.642 Presence of left artificial hip joint; Z87.891 Personal history of nicotine dependence; Z86.73 Personal history of transient ischemic attack (TIA), and cerebral infarction without residual deficits; Z91.048 Other nonmedicinal substance allergy status | CPT/HCPCS: 96365; J0696 ==

== ENCOUNTER 2019-02-22 00:12 | Day surgery (SDC) | payer MEDICARE, OTHER | END 2019-02-22 23:16 | disposition home or self-care (01) | LOC: ATC 00:12 | DX: A49.01 Methicillin susceptible Staphylococcus aureus infection, unspecified site (principal); I10 Essential (primary) hypertension; E11.65 Type 2 diabetes mellitus with hyperglycemia; L03.115 Cellulitis of right lower limb; I69.398 Other sequelae of cerebral infarction; H53.9 Unspecified visual disturbance; E78.5 Hyperlipidemia, unspecified; Z79.4 Long term (current) use of insulin; Z87.891 Personal history of nicotine dependence; Z79.899 Other long term (current) drug therapy; Z79.82 Long term (current) use of aspirin | CPT/HCPCS: 96365; J0696 ==

== ENCOUNTER 2019-02-23 09:00 | Day surgery (SDC) | payer MEDICARE, OTHER | END 2019-02-23 09:12 | disposition home or self-care (01) | LOC: ATC 09:00 | DX: R78.81 Bacteremia (principal); B95.61 Methicillin susceptible Staphylococcus aureus infection as the cause of diseases classified elsewhere; E11.628 Type 2 diabetes mellitus with other skin complications; L03.115 Cellulitis of right lower limb; I10 Essential (primary) hypertension; D63.8 Anemia in other chronic diseases classified elsewhere; E78.5 Hyperlipidemia, unspecified; Z96.642 Presence of left artificial hip joint; Z87.891 Personal history of nicotine dependence; Z86.73 Personal history of transient ischemic attack (TIA), and cerebral infarction without residual deficits; Z79.82 Long term (current) use of aspirin; Z79.2 Long term (current) use of antibiotics; Z79.4 Long term (current) use of insulin; Z79.899 Other long term (current) drug therapy | CPT/HCPCS: 96365; J0696 ==

== ENCOUNTER 2019-02-24 00:19 | Day surgery (SDC) | payer MEDICARE, OTHER ==
--- NOTE | 2019-02-24 10:25 | NUR ---
PT TO F/U WITH DR HERNANDEZ, DR BEAL OR THE ER RE. POSSIBLE GREAT TOE INFECTION.
== END 2019-02-24 09:37 | disposition home or self-care (01) ==
LOC: ATC 00:19
DX: R78.81 Bacteremia (principal); B95.61 Methicillin susceptible Staphylococcus aureus infection as the cause of diseases classified elsewhere; E11.628 Type 2 diabetes mellitus with other skin complications; L03.115 Cellulitis of right lower limb; I10 Essential (primary) hypertension; E78.5 Hyperlipidemia, unspecified; D63.8 Anemia in other chronic diseases classified elsewhere; Z79.2 Long term (current) use of antibiotics; Z79.82 Long term (current) use of aspirin; Z79.4 Long term (current) use of insulin; Z79.899 Other long term (current) drug therapy
CPT/HCPCS: 96365; J0696

== ENCOUNTER 2019-02-25 00:33 | Day surgery (SDC) | payer MEDICARE, OTHER | END 2019-02-25 09:18 | disposition home or self-care (01) | LOC: ATC 00:33 | DX: R78.81 Bacteremia (principal); B95.61 Methicillin susceptible Staphylococcus aureus infection as the cause of diseases classified elsewhere; E11.628 Type 2 diabetes mellitus with other skin complications; L03.115 Cellulitis of right lower limb; I10 Essential (primary) hypertension; E78.5 Hyperlipidemia, unspecified; D63.8 Anemia in other chronic diseases classified elsewhere; Z96.642 Presence of left artificial hip joint; Z87.891 Personal history of nicotine dependence; Z86.73 Personal history of transient ischemic attack (TIA), and cerebral infarction without residual deficits; Z79.2 Long term (current) use of antibiotics; Z79.4 Long term (current) use of insulin; Z79.82 Long term (current) use of aspirin; Z79.899 Other long term (current) drug therapy | CPT/HCPCS: 96365; J0696 ==

== ENCOUNTER 2019-02-26 00:45 | Day surgery (SDC) | payer MEDICARE, OTHER | END 2019-02-26 09:35 | disposition home or self-care (01) | LOC: ATC 00:45 | DX: R78.81 Bacteremia (principal); B95.61 Methicillin susceptible Staphylococcus aureus infection as the cause of diseases classified elsewhere; E11.628 Type 2 diabetes mellitus with other skin complications; L03.115 Cellulitis of right lower limb; I10 Essential (primary) hypertension; E78.5 Hyperlipidemia, unspecified; D63.8 Anemia in other chronic diseases classified elsewhere; Z96.642 Presence of left artificial hip joint; Z87.891 Personal history of nicotine dependence; Z86.73 Personal history of transient ischemic attack (TIA), and cerebral infarction without residual deficits; Z79.2 Long term (current) use of antibiotics; Z79.4 Long term (current) use of insulin; Z79.82 Long term (current) use of aspirin; Z79.899 Other long term (current) drug therapy | CPT/HCPCS: 96365; J0696 ==

== ENCOUNTER 2019-02-27 00:08 | Day surgery (SDC) | payer MEDICARE, OTHER | END 2019-02-27 09:25 | disposition home or self-care (01) | LOC: ATC 00:08 | DX: L03.115 Cellulitis of right lower limb (principal); E78.5 Hyperlipidemia, unspecified; I12.9 Hypertensive chronic kidney disease with stage 1 through stage 4 chronic kidney disease, or unspecified chronic kidney disease; E11.65 Type 2 diabetes mellitus with hyperglycemia; E11.22 Type 2 diabetes mellitus with diabetic chronic kidney disease; N18.9 Chronic kidney disease, unspecified; D63.1 Anemia in chronic kidney disease; I69.398 Other sequelae of cerebral infarction; H53.9 Unspecified visual disturbance; Z79.4 Long term (current) use of insulin; Z87.891 Personal history of nicotine dependence; Z79.82 Long term (current) use of aspirin; Z79.899 Other long term (current) drug therapy; Z99.2 Dependence on renal dialysis | CPT/HCPCS: 96365; J0696 ==

== ENCOUNTER 2019-02-28 00:19 | Day surgery (SDC) | payer MEDICARE, OTHER | END 2019-02-28 09:15 | disposition home or self-care (01) | LOC: ATC 00:19 | DX: R78.81 Bacteremia (principal); B95.61 Methicillin susceptible Staphylococcus aureus infection as the cause of diseases classified elsewhere; E11.628 Type 2 diabetes mellitus with other skin complications; L03.115 Cellulitis of right lower limb; I10 Essential (primary) hypertension; E78.5 Hyperlipidemia, unspecified; D63.8 Anemia in other chronic diseases classified elsewhere; I69.998 Other sequelae following unspecified cerebrovascular disease; Z79.2 Long term (current) use of antibiotics; Z79.82 Long term (current) use of aspirin; Z79.4 Long term (current) use of insulin; Z79.899 Other long term (current) drug therapy; Z87.891 Personal history of nicotine dependence; Z91.048 Other nonmedicinal substance allergy status | CPT/HCPCS: 96365; J0696 ==

== ENCOUNTER 2019-03-01 00:30 | Day surgery (SDC) | payer MEDICARE, OTHER | END 2019-03-01 23:38 | disposition home or self-care (01) | LOC: ATC 00:30 | DX: R78.81 Bacteremia (principal); B95.61 Methicillin susceptible Staphylococcus aureus infection as the cause of diseases classified elsewhere; E11.628 Type 2 diabetes mellitus with other skin complications; L03.115 Cellulitis of right lower limb; I10 Essential (primary) hypertension; I69.998 Other sequelae following unspecified cerebrovascular disease; D63.8 Anemia in other chronic diseases classified elsewhere; E78.5 Hyperlipidemia, unspecified; Z79.2 Long term (current) use of antibiotics; Z79.82 Long term (current) use of aspirin; Z79.4 Long term (current) use of insulin; Z79.899 Other long term (current) drug therapy; Z87.891 Personal history of nicotine dependence; Z91.048 Other nonmedicinal substance allergy status ==

== ENCOUNTER 2019-04-08 12:06 | Emergency (ER) | payer MEDICARE, OTHER ==
[~2019-04-08] VITALS: Ht 162.6 cm; Wt 73.5 kg
[2019-04-08 13:13] LABS: BASOPHILS ABSOLUTE AUTO 0.02 K/mm3 (0.00-0.23); BASOPHILS PERCENT AUTO 0 % (0-2); EOSINOPHILS ABSOLUTE AUTO 0.02 K/mm3 (0.00-0.68); EOSINOPHILS PERCENT AUTO 0 % (0-6); Hemoglobin 12.6 g/dL (13.5-17.5); IMMATURE GRAN ABSOLUTE AUTO 0.06 K/mm3 (0.00-0.10); IMMATURE GRAN PERCENT AUTO 1 % (0-1); LYMPHOCYTES ABSOLUTE AUTO 1.46 K/mm3 (0.84-5.20); LYMPHOCYTES PERCENT AUTO 17 % (21-46); MONOCYTES ABSOLUTE AUTO 0.39 K/mm3 (0.16-1.47); MONOCYTES PERCENT AUTO 5 % (4-13); Mean Corpuscular HGB 32.2 pg (26.0-34.0); Mean Corpuscular HGB Conc 32.3 g/dL (31.5-36.5); Mean Corpuscular Volume 100 fL (80-100); Mean Platelet Volume 9.9 fL (9.1-12.4); NEUTROPHILS ABSOLUTE AUTO 6.66 K/mm3 (1.96-9.15); NEUTROPHILS PERCENT AUTO 77 % (41-73); Platelet Count 219 K/mm3 (150-400); RDW Coefficient Variation 12.9 % (11.7-14.2); RDW Standard Deviation 46.9 fL (35.1-46.3); Red Blood Cell Count 3.91 M/mm3 (4.30-5.90); White Blood Cell Count 8.61 K/mm3 (4.00-11.30)
[2019-04-08 13:16] LABS: Alanine Aminotransfer (ALT/SGP 40 U/L (12-78); Albumin/Globulin Ratio 1.3 (0.8-1.8); Alk Phos 62 U/L (50-136); Anion Gap 9 mmol/L (6-16); Aspartate Aminotrans (AST/SGOT 31 U/L (12-37); Bilirubin, Total 0.6 mg/dL (0.1-1.0); Blood Urea Nitrogen 44 mg/dL (8-24); Bun/Creatinine Ratio 22.8 (12.0-20.0); CO2, Blood 19 mmol/L (21-32); Calcium, Blood 9.3 mg/dL (8.5-10.1); Chloride, Blood 110 mmol/L (98-108); Creatinine, Blood 1.93 mg/dL (0.60-1.20); Glomerular Filtration Rate 36 (60-); Glucose, Blood 174 mg/dL (70-99); Potassium, Blood 4.8 mmol/L (3.5-5.5); Sodium, Blood 138 mmol/L (136-145); Troponin I <0.015 ng/mL (0.000-0.040)
== END 2019-04-08 15:03 | disposition home or self-care (01) ==
LOC: ER 12:06
PROVIDERS: Physician Assistant
DX: R20.0 Anesthesia of skin (principal); Z86.73 Personal history of transient ischemic attack (TIA), and cerebral infarction without residual deficits; Z87.891 Personal history of nicotine dependence; Z91.048 Other nonmedicinal substance allergy status; Z79.899 Other long term (current) drug therapy; Z79.4 Long term (current) use of insulin; Z79.82 Long term (current) use of aspirin
CPT/HCPCS: 36415; 70450; 80053; 84484; 85025; 93005; 93010; 99284-25

== ENCOUNTER 2019-08-07 20:07 | Inpatient (IN) | payer MEDICARE, OTHER ==
[~2019-08-07] VITALS: Ht 162.6 cm; Wt 80.2 kg
[~2019-08-07 20:07] MED LIST changes: +ASPIR 8181 MG PO; -Aspir-Low81 MG PO; +B-121000 MC3 PO; -CYAN1000 PO; +Daily Multiple1 EACH PO; -MULVITMIND PO; +VITAMIN D31000 UNI1 PO; -VITAMIN D31000 UNI2 PO
[2019-08-07 20:26] LABS: BASOPHILS ABSOLUTE AUTO 0.02 K/mm3 (0.00-0.23); BASOPHILS PERCENT AUTO 0 % (0-2); EOSINOPHILS ABSOLUTE AUTO 0.06 K/mm3 (0.00-0.68); EOSINOPHILS PERCENT AUTO 1 % (0-6); Hematocrit 34.7 % (37.0-53.0); Hemoglobin 11.5 g/dL (13.5-17.5); IMMATURE GRAN ABSOLUTE AUTO 0.03 K/mm3 (0.00-0.10); IMMATURE GRAN PERCENT AUTO 0 % (0-1); LYMPHOCYTES ABSOLUTE AUTO 1.13 K/mm3 (0.84-5.20); LYMPHOCYTES PERCENT AUTO 10 % (21-46); MONOCYTES ABSOLUTE AUTO 1.37 K/mm3 (0.16-1.47); MONOCYTES PERCENT AUTO 12 % (4-13); Mean Corpuscular HGB 33.5 pg (26.0-34.0); Mean Corpuscular HGB Conc 33.1 g/dL (31.5-36.5); Mean Corpuscular Volume 101 fL (80-100); Mean Platelet Volume 9.9 fL (9.1-12.4); NEUTROPHILS PERCENT AUTO 78 % (41-73); Platelet Count 263 K/mm3 (150-400); RDW Coefficient Variation 11.2 % (11.7-14.2); RDW Standard Deviation 41.6 fL (35.1-46.3); Red Blood Cell Count 3.43 M/mm3 (4.30-5.90); White Blood Cell Count 11.81 K/mm3 (4.00-11.30)
[2019-08-07 20:44] LABS: Albumin, Blood 3.6 g/dL (3.4-5.0); Albumin/Globulin Ratio 1.1 (0.8-1.8); Bilirubin, Total 2.1 mg/dL (0.1-1.0); Calcium, Blood 9.2 mg/dL (8.5-10.1); Creatinine, Blood 2.58 mg/dL (0.60-1.20); Globulin, Blood 3.4 g/dL (2.2-4.0); Potassium, Blood 3.5 mmol/L (3.5-5.5)
[2019-08-07 21:07] LABS: Source, Urine Catheter
[2019-08-07 21:10] LABS: Bilirubin, Urine Neg (Neg); Blood, Urine 1+ (Neg); Glucose Qualitative, Urine Neg (Neg); Ketones, Urine Neg (Neg); Leukocyte Esterase, Urine Neg (Neg); Nitrite, Urine Neg (Neg); Protein, Urine 2+ (Neg); Specific Gravity, Urine 1.015 (1.003-1.022); Urobilinogen, Urine NORM (Normal)
[2019-08-07 21:16] LABS: Appearance, Urine Clear (Clear); Color, Urine Yellow (P-Yellow)
[2019-08-07 21:17] LABS: Bacteria Rare /hpf; Red Blood Cells, Urine Not Seen /hpf (0-2); Squamous Epithelial Cells Rare /hpf (Few); White Blood Cells, Urine Not Seen /hpf (0-5)
[2019-08-07] MEDS ORDERED: INSULIN LI100 UNIT/2 SC (21:30)
[2019-08-07] MEDS ORDERED: NEBI5 PO (21:31)
[2019-08-07] MEDS ORDERED: GABA300 PO (21:34)
[2019-08-07] MEDS ORDERED: FUROSEMIDE40 MG PO (21:36)
--- NOTE | 2019-08-08 04:42 | NUR ---
SHIFT SUMMARY ASSUMED CARE OF PT AT 0115. PT IS A/OX4 BUT VERY HARD OF HEARING AND A POOR HISTORIAN, STATES N/T IN LOWER EXTREMITES DUE TO DIABETES. HEART SOUNDS REGULAR BUT DISTANT, FINE CRACKLES IN THE BASES OF LUNGS, DENIES SOB/CP AT THIS TIME. ABD DISTENED AND FIRM, DENIES ANY PAIN. PT IS INDEPENDENT IN ROOM. PT HAS GLUCOSE MONITOR IMPLANTED IN ARM. HOSPITALIST NOTIFIED AND ORDERED Q6 GLUCOSE MONITORING WITH LOW SLIDING SCALE COVERAGE. NO ACUTE EVENTS DURING THE NIGHT, PT SLEPT T/O THE NIGHT. CALL LIGHT IN REACH, BED IN LOWEST POSITION, WILL CONTINUE TO MONITOR UNTIL DAYSHIFT NURSE ARRIVES.
[2019-08-08 09:02] LABS: BASOPHILS ABSOLUTE AUTO 0.03 K/mm3 (0.00-0.23); BASOPHILS PERCENT AUTO 0 % (0-2); EOSINOPHILS ABSOLUTE AUTO 0.36 K/mm3 (0.00-0.68); EOSINOPHILS PERCENT AUTO 3 % (0-6); Hematocrit 33.9 % (37.0-53.0); Hemoglobin 11.3 g/dL (13.5-17.5); IMMATURE GRAN ABSOLUTE AUTO 0.04 K/mm3 (0.00-0.10); IMMATURE GRAN PERCENT AUTO 0 % (0-1); LYMPHOCYTES ABSOLUTE AUTO 1.72 K/mm3 (0.84-5.20); LYMPHOCYTES PERCENT AUTO 15 % (21-46); MONOCYTES ABSOLUTE AUTO 1.34 K/mm3 (0.16-1.47); MONOCYTES PERCENT AUTO 12 % (4-13); Mean Corpuscular HGB Conc 33.3 g/dL (31.5-36.5); Mean Corpuscular Volume 102 fL (80-100); Mean Platelet Volume 9.9 fL (9.1-12.4); NEUTROPHILS ABSOLUTE AUTO 7.69 K/mm3 (1.96-9.15); NEUTROPHILS PERCENT AUTO 69 % (41-73); Platelet Count 250 K/mm3 (150-400); RDW Coefficient Variation 11.3 % (11.7-14.2); RDW Standard Deviation 42.2 fL (35.1-46.3); Red Blood Cell Count 3.32 M/mm3 (4.30-5.90); White Blood Cell Count 11.18 K/mm3 (4.00-11.30)
[2019-08-08 09:19] LABS: Albumin, Blood 3.3 g/dL (3.4-5.0); Bilirubin, Total 3.4 mg/dL (0.1-1.0); Bun/Creatinine Ratio 16.4 (12.0-20.0); Calcium, Blood 8.7 mg/dL (8.5-10.1); Creatinine, Blood 2.5 mg/dL (0.60-1.20); Globulin, Blood 3.4 g/dL (2.2-4.0); Potassium, Blood 4.1 mmol/L (3.5-5.5); Total Protein, Blood 6.7 g/dL (6.4-8.2)
--- NOTE | 2019-08-08 12:00 | NUR ---
RECIEVED REPORT FROM LAB OF POSITIVE BLOOD CULTURE OF GRAM POSITIVE COCCI IN [place], DR. VAZQUEZ NOTIFIED, RECIEVED ORDERS FOR ROCEPHIN 1G IV NOW AND DAILY.
--- NOTE | 2019-08-08 16:24 | NUR ---
PT BEGAN TO HAVE FULL BODY TREMORS SPONTANEOUSLY. VS OBTAINED, PT FEBRILE AT 102.3 F, FACE FLUSHED. COOL WASH CLOTH PLACED ON FOREHEAD, BLANKETS REMOVED EXCEPT FOR SHEET, THERMOSTAT TURNED DOWN, APAP GIVEN, FLUIDS CHANGED TO LR. TREMORS HAVE DECREASED WITH ABOVE INTERVENTIONS.
--- NOTE | 2019-08-08 16:56 | NUR ---
TREMORS RESOVED, FEVER REDUCED TO 101 F. PT SLEEPING, ARROUSED WITH VERBAL STIMULATION WITHOUT TREMORS.
--- NOTE | 2019-08-08 18:23 | NUR ---
SHIFT SUMMARY. A&OX4, INDEPENDENT IN ROOM, NO SAFETY CONCERNS. PT DENIES PAIN, SOB, N/V. PT BECAME FEBRILE THIS AFTERNOON, RESOLVED WITH INTERVENTIONS, TEMPERATURE CURRENTLY 99.7. LR CONTINUES TO INFUSE. PT TOLERATING CLEAR LIQUID DIET WITHOUT ISSUE.
--- NOTE | 2019-08-08 18:26 | NUR ---
PT INDEPENDENT IN ROOM, I GAVE HIM FRESH ATTENDS TO PUT ON BUT HE SAID HE WOULD LIKE TO KEEP SLEEPING AND WILL CHANGE THEM WHEN HE GETS UP TO THE BATHROOM NEXT.
--- NOTE | 2019-08-09 04:46 | NUR ---
SOFTWARE VALIDATION TECHNICIAN SUMMARY NO ACUTE CHANGES THIS SHIFT. PT AAOX4 AND INDEPENDENT IN ROOM. DENIES ABD PAIN, N/V. PT HAS BEEN NPO SINCE MIDNIGHT IN PREP FOR POSSIBLE PROCEDURE LATER TODAY. PT HAS BEEN AFEBRILE TONIGHT. VSS, WILL CONTINUE TO MONITOR.
[2019-08-09 05:20] LABS: BASOPHILS ABSOLUTE AUTO 0.02 K/mm3 (0.00-0.23); BASOPHILS PERCENT AUTO 0 % (0-2); EOSINOPHILS ABSOLUTE AUTO 0.56 K/mm3 (0.00-0.68); EOSINOPHILS PERCENT AUTO 8 % (0-6); Hematocrit 32.1 % (37.0-53.0); Hemoglobin 10.3 g/dL (13.5-17.5); IMMATURE GRAN ABSOLUTE AUTO 0.02 K/mm3 (0.00-0.10); IMMATURE GRAN PERCENT AUTO 0 % (0-1); LYMPHOCYTES ABSOLUTE AUTO 1.13 K/mm3 (0.84-5.20); LYMPHOCYTES PERCENT AUTO 16 % (21-46); MONOCYTES ABSOLUTE AUTO 0.57 K/mm3 (0.16-1.47); MONOCYTES PERCENT AUTO 8 % (4-13); Mean Corpuscular HGB 33.2 pg (26.0-34.0); Mean Corpuscular HGB Conc 32.1 g/dL (31.5-36.5); Mean Corpuscular Volume 104 fL (80-100); Mean Platelet Volume 10.5 fL (9.1-12.4); NEUTROPHILS ABSOLUTE AUTO 4.66 K/mm3 (1.96-9.15); NEUTROPHILS PERCENT AUTO 67 % (41-73); Platelet Count 212 K/mm3 (150-400); RDW Coefficient Variation 11.4 % (11.7-14.2); RDW Standard Deviation 43.3 fL (35.1-46.3); White Blood Cell Count 6.96 K/mm3 (4.00-11.30)
[2019-08-09 05:42] LABS: Bilirubin, Total 3.3 mg/dL (0.1-1.0); Bun/Creatinine Ratio 12.8 (12.0-20.0); Calcium, Blood 8.9 mg/dL (8.5-10.1); Creatinine, Blood 2.73 mg/dL (0.60-1.20); Globulin, Blood 3.1 g/dL (2.2-4.0); Potassium, Blood 3.8 mmol/L (3.5-5.5); Total Protein, Blood 6.1 g/dL (6.4-8.2)
--- NOTE | 2019-08-09 09:44 | NUR ---
Patient up to Ambulate independently. Gait steady. Surgical site prepped with 2% Chlorhexidine cloth wipe. History, Chart, Medications and Allergies reviewed before start of procedure. Lungs clear T/O to Auscultation. Patient confirms NPO status and agrees with scheduled surgery. Pre-Op teaching done. Pt verbalizes understanding.
--- NOTE | 2019-08-09 09:51 | NUR ---
PT TO OR VIA [facility].
--- NOTE | 2019-08-09 10:24 | NUR ---
08/09/19 Camilo Oliver ALL ENTRIES BY ORD.EMILY WERE ACTUALLY ENTERED BY ORD.JOSE LUIS.
--- NOTE | 2019-08-09 12:08 | NUR ---
ARRIVED AT 1120 FROM OR VSS DRESSING CDI ORAL AIRWAY REMOVED AT 1130 AND PATIENT PLACED NASAL CANNULA AT THAT TIME. SAT DROPPED AND PATYIENT PLACED ON NRB AT 1135 TILL 1155 THEN PLACED ON NC AT 2 LITERS. REPORT WAS GIVEN AND PATIENT TAKEN TO ROOM 228 AT THIS TIME 1210. DRESSINGS REMAIN CDI
--- NOTE | 2019-08-09 12:25 | NUR ---
CALLED REPORT TO BEBE GEE ON SURGICAL FLOOR.
--- NOTE | 2019-08-09 12:29 | NUR ---
PT ARRIVED TO UNIT FROM PACU TRANSFERRED WITH MINIMAL ASSISTANCE TO BED FROM [facility]. DENIES PAIN, N/V, OR SOB. INSTRUCTED TO TAKE DEEP BREATHES DUE TO SATS 88-89% ON 2L. INCREASED 02 TO 3L, SATS NOW 92%. VSS. STERI STRIPS TO ABD X4 CDI. PT SITTING UP IN BED EATING JELLO AND ICE CHIPS. CALL LIGHT IN REACH.
--- NOTE | 2019-08-09 17:23 | NUR ---
SUMMARY NO ACUTE CHANGES SINCE ARRIVING TO UNIT FROM PACU. PT TOLERATING CLEARS. DENIED PAIN, N/V, SOB. HAS BEEN SLEEPING T/O AFTERNOON. CALL LIGHT IN REACH.
[2019-08-10 04:31] LABS: BASOPHILS ABSOLUTE AUTO 0.01 K/mm3 (0.00-0.23); BASOPHILS PERCENT AUTO 0 % (0-2); EOSINOPHILS PERCENT AUTO 0 % (0-6); Hemoglobin 10.4 g/dL (13.5-17.5); IMMATURE GRAN ABSOLUTE AUTO 0.03 K/mm3 (0.00-0.10); IMMATURE GRAN PERCENT AUTO 1 % (0-1); LYMPHOCYTES ABSOLUTE AUTO 0.92 K/mm3 (0.84-5.20); LYMPHOCYTES PERCENT AUTO 15 % (21-46); MONOCYTES ABSOLUTE AUTO 0.55 K/mm3 (0.16-1.47); MONOCYTES PERCENT AUTO 9 % (4-13); Mean Corpuscular HGB 33.9 pg (26.0-34.0); Mean Corpuscular HGB Conc 33.5 g/dL (31.5-36.5); Mean Platelet Volume 10.2 fL (9.1-12.4); NEUTROPHILS ABSOLUTE AUTO 4.84 K/mm3 (1.96-9.15); NEUTROPHILS PERCENT AUTO 76 % (41-73); Platelet Count 216 K/mm3 (150-400); RDW Coefficient Variation 11.1 % (11.7-14.2); Red Blood Cell Count 3.07 M/mm3 (4.30-5.90); White Blood Cell Count 6.35 K/mm3 (4.00-11.30)
[2019-08-10 04:39] LABS: Mean Corpuscular Volume 101 fL (80-100)
[2019-08-10 04:53] LABS: Albumin/Globulin Ratio 0.9 (0.8-1.8); Bilirubin, Total 1.4 mg/dL (0.1-1.0); Bun/Creatinine Ratio 13.7 (12.0-20.0); Calcium, Blood 9.1 mg/dL (8.5-10.1); Creatinine, Blood 2.63 mg/dL (0.60-1.20); Globulin, Blood 3.4 g/dL (2.2-4.0); Potassium, Blood 4.1 mmol/L (3.5-5.5); Total Protein, Blood 6.4 g/dL (6.4-8.2)
--- NOTE | 2019-08-10 05:44 | NUR ---
POD1 S/P LAP GUICHO DENIES N/V. AMBULATE INDEPENDTLY. TOLERATE REG DIET. DENIES PAIN. PT SLEPT GOOD LAST NIGHT. PT'S CBG ELEV 376. MED ORDERED. PT TREATED W/ HUMALOG N INSULIN. PT INITIAL 2L N/C, WEAN O2, TOLERATE RA AT 92%. VS. NORML. PT EXPCTD D/C TODAY.
--- NOTE | 2019-08-10 08:00 | NUR ---
REMOVED PT O2 BIOX 93% ON RA WILL CONT TO MONITOR
--- NOTE | 2019-08-10 09:00 | NUR ---
DR GARCIA BY TO SEE PT
--- NOTE | 2019-08-10 09:25 | NUR ---
PER DR TRORES OK TO DISCHARGE HOME
[2019-08-10] MEDS ORDERED: Norco 5-325 Ta1 EACH PO (11:02)
--- NOTE | 2019-08-10 11:56 | NUR ---
DISCHARGE INSTRUCIONS REVIEWED WITH PT VERBALIZED RX GIVEN PT GETTING DRESSED AND CALLING FOR HIS RIDE
--- NOTE | 2019-08-10 12:20 | NUR ---
amb to car no acute changes
== END 2019-08-10 12:37 | disposition home or self-care (01) | DRG 417 ==
LOC: ER 20:07 → SURS 08-08 00:58 → MEDS 08-08 00:58 → SURS 08-09 12:03
PROVIDERS: Physician Assistant; Surgery; ADMIT Internal Medicine
PROC: BF03YZZ Plain Radiography of Gallbladder and Bile Ducts using Other Contrast (ICD-10-PCS; 2019-08-09)
PROC: 0FT44ZZ Resection of Gallbladder, Percutaneous Endoscopic Approach (ICD-10-PCS; principal; 2019-08-09 13:00)
DX: K80.01 Calculus of gallbladder with acute cholecystitis with obstruction (principal); K85.10 Biliary acute pancreatitis without necrosis or infection; E87.2 Acidosis; N18.3 Chronic kidney disease, stage 3 (moderate); E11.22 Type 2 diabetes mellitus with diabetic chronic kidney disease; E78.5 Hyperlipidemia, unspecified; E11.40 Type 2 diabetes mellitus with diabetic neuropathy, unspecified; K21.9 Gastro-esophageal reflux disease without esophagitis; K52.9 Noninfective gastroenteritis and colitis, unspecified; Z90.5 Acquired absence of kidney; Z85.528 Personal history of other malignant neoplasm of kidney; Z79.4 Long term (current) use of insulin; Z79.82 Long term (current) use of aspirin; Z86.73 Personal history of transient ischemic attack (TIA), and cerebral infarction without residual deficits
CPT/HCPCS: 36415; 74176; 74300; 76705; 80053; 81001; 82947; 83605; 83690; 85025; 87040; 88304; 93005; 93010; 96361; 96365; 99285-25; A9270; A9270-GY; C1729; J0696; J1100; J1650; J1885; J2405; J2543; J2704; J3010; J7030; J7120; U0002

== ENCOUNTER → 2020-01-03 | Outpatient (CLI) | payer MEDICARE, OTHER ==
[~2020-01-03] MED LIST changes: +FUROSEMIDE40 MG PO; +GABA300 PO; +INSULIN LI100 UNIT/2 SC; +NEBI5 PO; +Norco 5-325 Ta1 EACH PO
== END ==
LOC: LAB SHORT 13:27 → LAB 13:27
DX: L08.9 Local infection of the skin and subcutaneous tissue, unspecified (principal); Z48.02 Encounter for removal of sutures
CPT/HCPCS: 87070; 87077; 87147; 87186; 87205

== ENCOUNTER → 2020-01-24 | Outpatient (CLI) | payer MEDICARE, OTHER | LOC: LAB 17:32 → LAB SHORT 17:32 | DX: Z48.817 Encounter for surgical aftercare following surgery on the skin and subcutaneous tissue (principal); Z48.02 Encounter for removal of sutures; L08.9 Local infection of the skin and subcutaneous tissue, unspecified; L82.1 Other seborrheic keratosis | CPT/HCPCS: 87070; 87077; 87147; 87186; 87205 ==

== ENCOUNTER → 2021-06-14 | Outpatient (CLI) | payer MEDICARE, OTHER ==
[2021-06-14 11:22] LABS: Creatinine Urine 56.1 mg/dL (27.00-270.00); Microalbumin, Urine Quant. 69.3 mg/L (0.000-20.000); Protein, Urine Quantitative 19.1 mg/dL (0.0-11.9)
== END | disposition home or self-care (01) ==
LOC: LAB SHORT 08:00 → LAB FUT 06-10 13:20
PROVIDERS: Internal Medicine Nephrology
DX: N18.30 Chronic kidney disease, stage 3 unspecified (principal); D63.1 Anemia in chronic kidney disease; N25.81 Secondary hyperparathyroidism of renal origin; E55.9 Vitamin D deficiency, unspecified; E78.00 Pure hypercholesterolemia, unspecified; R76.9 Abnormal immunological finding in serum, unspecified; R94.5 Abnormal results of liver function studies; R94.6 Abnormal results of thyroid function studies
CPT/HCPCS: 81050; 82043; 82570; 84156

== ENCOUNTER → 2024-03-22 | Outpatient (CLI) | payer MEDICARE, OTHER ==
[~2024-03-22] MED LIST changes: +ELIQUIS2.5 MG PO; +HUMALOG KW100 UNIT/1; +OZEMPIC1 MG/0.72 SC; +VISBIOME 112.51 EACH PO
== END ==
LOC: LAB SHORT 15:01 → LAB 15:01
DX: E11.42 Type 2 diabetes mellitus with diabetic polyneuropathy (principal)
CPT/HCPCS: 87070; 87077; 87186; 87205